=== PATIENT | female | born 1970 | race Caucasian/White ===

== ENCOUNTER 2019-03-23 10:11 | Emergency (ER) | payer OTHER ==
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
[2019-03-23 12:00] VITALS: BP 117/82
[2019-03-23] MEDS ORDERED: IBUPROFEN 600 MG TAB PO ONE (12:00)
[2019-03-23] MEDS ORDERED: ORPHENADRINE CITR 100 MG TABSR PO ONE (12:00)
== END 2019-03-23 12:28 | disposition home or self-care (01) ==
LOC: ER 10:55
DX: S13.4XXA Sprain of ligaments of cervical spine, initial encounter (principal); S50.311A Abrasion of right elbow, initial encounter
CPT/HCPCS: 72125; 99284

== ENCOUNTER → 2019-03-23 | Outpatient (CLI) | payer OTHER | LOC: AMB 09:32 | PROVIDERS: ATTEND Nurse Practitioner | DX: R53.1 Weakness (principal); M54.2 Cervicalgia | CPT/HCPCS: A0425; A0427 ==